=== PATIENT | male | born 1995 | race Caucasian/White ===

== ENCOUNTER 2016-10-01 07:28 | Emergency (ER) | payer BC, OTHER ==
[~2016-10-01] VITALS: Ht 177.8 cm; Wt 83.9 kg
[2016-10-01] MEDS: HYDROcodone/APAP 7.5 MG/325 MG (LORTAB, LORCET PLUS) TABLET PO STA (07:58)
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
[2016-10-01] MEDS: BACITRACIN OINTMENT 28 GM TUBE TOP SCH (08:21)
[2016-10-01] MEDS: RX-MUPIROCIN (BACTROBAN) 2% OINT 22 GM TUBE TOP STA (08:21)
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
[2016-10-01] MEDS ORDERED: HYDR-756 PO (08:54)
[2016-10-01 09:10] VITALS: BP 132/72
== END 2016-10-01 09:10 | disposition home or self-care (01) ==
LOC: ER 07:32
DX: S09.90XA Unspecified injury of head, initial encounter (principal); S19.9XXA Unspecified injury of neck, initial encounter; S00.81XA Abrasion of other part of head, initial encounter; S50.312A Abrasion of left elbow, initial encounter; S50.311A Abrasion of right elbow, initial encounter; S50.812A Abrasion of left forearm, initial encounter; S50.811A Abrasion of right forearm, initial encounter; S60.511A Abrasion of right hand, initial encounter; S80.212A Abrasion, left knee, initial encounter; S80.211A Abrasion, right knee, initial encounter; V89.0XXA Person injured in unspecified motor-vehicle accident, nontraffic, initial encounter
CPT/HCPCS: 70450; 72125; 99282